=== PATIENT | male | born 1955 | race Two or more races ===

== ENCOUNTER 2018-05-03 06:41 | Emergency (ER) | payer OTHER ==
[~2018-05-03] VITALS: Ht 170.2 cm; Wt 103.2 kg
[2018-05-03 09:09] VITALS: BP 133/100
== END 2018-05-03 09:10 | disposition home or self-care (01) ==
LOC: TRA 06:41
DX: S00.211A Abrasion of right eyelid and periocular area, initial encounter (principal); S06.9X9A Unspecified intracranial injury with loss of consciousness of unspecified duration, initial encounter; S70.311A Abrasion, right thigh, initial encounter; V74.6XXA Passenger on bus injured in collision with heavy transport vehicle or bus in traffic accident, initial encounter; Y92.410 Unspecified street and highway as the place of occurrence of the external cause
CPT/HCPCS: 99281; 99284